=== PATIENT | male | born 1985 | race Two or more races ===

== ENCOUNTER 2017-01-04 23:00 | Emergency (ER) | payer MEDICAID ==
[~2017-01-04] VITALS: Ht 177.8 cm; Wt 86.2 kg
[2017-01-04 23:13] VITALS: BP 150/95
== END 2017-01-05 02:30 | disposition left against medical advice (07) ==
LOC: ER 23:11
DX: R50.9 Fever, unspecified (principal); Z53.21 Procedure and treatment not carried out due to patient leaving prior to being seen by health care provider

== ENCOUNTER → 2018-06-28 | Emergency (ER) | payer MEDICAID | END | disposition left against medical advice (07) | LOC: ER 15:43 | DX: R73.9 Hyperglycemia, unspecified (principal); Z53.21 Procedure and treatment not carried out due to patient leaving prior to being seen by health care provider ==